=== PATIENT | male | born 1940 | race Caucasian/White ===

== ENCOUNTER 2016-12-28 09:43 | Day surgery (SDC) | payer OTHER ==
[~2016-12-28] VITALS: Ht 170.2 cm; Wt 137.0 kg
[~2016-12-28 09:43] MED LIST: ALBUTEROL1.25 MG/3 IH; BUSPIRONE HCL15 MG PO; DEPAKOTE ER500 MG PO; FINASTERIDE5 MG PO; FLOMAX0.4 MG PO; FUROSEMIDE40 MG PO; GABAPENTIN300 MG PO; ISOSORBIDE MONO30 MG PO; LANTUS 10100 UNITS/ SC; LIDODERM 5% P1 PATCH TD; LO-DOSE ASPIRIN81 M2 PO; NOVOLOG 10100 UNITS/ SC; PLAVIX75 MG PO; TOPROL XL50 MG PO; TYLENOL EXTRA500 MG PO; VITAMIN D32000 UNI1 PO
[2016-12-28 10:22] VITALS: BP 197/87
[2016-12-28 10:31] LABS: POINT-OF-CARE METER ID UU14174212
[2016-12-28 10:39] LABS: HEMATOCRIT 33.3 % (38.0-50.0); MCV 105.7 FL (86-99)
[2016-12-28 11:02] LABS: ANION GAP 10 MEQ/L (2-14); CHLORIDE 111 MEQ/L (99-109); POTASSIUM 5.8 MEQ/L (3.7-5.4); SAMPLE HEMOLYSIS CHECK 0; SAMPLE ICTERIC CHECK 0; SAMPLE LIPEMIA CHECK 0; SODIUM 143 MEQ/L (136-147)
[2016-12-28 11:07] LABS: GFR ESTIMATE (CALCULATED) 15 mL/min/; GLUCOSE 114 mg/dL (70-99); UREA NITROGEN (BUN) 80 mg/dL (9-23)
[2016-12-28 11:49] LABS: POINT-OF-CARE METER ID UU14174212
[2016-12-28 11:58] LABS: METH RESISTANT S AUREUS PCR NEGATIVE (NEGATIVE)
[2016-12-28 11:59] LABS: PROBE CHECK PASS; SPECIMEN PROCESSING CONTROL PASS
[2016-12-28] MEDS ORDERED: NORCO 5/3251 TABLET PO (15:01)
[2016-12-28 16:03] VITALS: BP 136/75
[2016-12-28 17:42] LABS: POINT-OF-CARE METER ID UU14174212
[2016-12-28 17:43] VITALS: BP 163/76
[2016-12-28 19:05] VITALS: BP 147/79
[2016-12-28 19:39] VITALS: BP 158/73
== END 2016-12-28 20:10 | disposition home or self-care (01) ==
LOC: SDC 09:43
PROVIDERS: Anesthesiology; Surgery
PROC: 03180ZD Bypass Left Brachial Artery to Upper Arm Vein, Open Approach (ICD-10-PCS; principal; 2016-12-28)
DX: I12.0 Hypertensive chronic kidney disease with stage 5 chronic kidney disease or end stage renal disease (principal); E11.22 Type 2 diabetes mellitus with diabetic chronic kidney disease; N18.6 End stage renal disease; Z99.2 Dependence on renal dialysis; J44.9 Chronic obstructive pulmonary disease, unspecified; K21.9 Gastro-esophageal reflux disease without esophagitis
CPT/HCPCS: 80048; 82948; 85014; 85018; 87641; C2628; J0690; J1644; J2250

== ENCOUNTER 2016-12-30 21:23 | Emergency (ER) | payer OTHER ==
[~2016-12-30] VITALS: Ht 170.2 cm; Wt 136.3 kg
[~2016-12-30 21:23] MED LIST changes: +NORCO 5/3251 TABLET PO
[2016-12-30 22:36] LABS: HEMATOCRIT 29.8 % (38.0-50.0); MCH 34.9 PG (29.0-34.0); MCHC 32.9 G/DL (30.0-36.0); MEAN PLAT.VOLUME 9.1 uM^3 (9.0-12.4); PLATELET COUNT 123 K/uL (156-360); RBC DIS.WIDTH-CV 12.4 % (11.8-14.6); RBC DIS.WIDTH-SD 46.3 % (39-53); RED BLOOD COUNT 2.81 M/uL (4.00-5.50); WHITE BLOOD COUNT 5.7 K/uL (4.1-10.2)
[2016-12-30 22:45] LABS: CHLORIDE 113 mEq/L (99-109); POTASSIUM 5.5 mEq/L (3.7-5.4); SODIUM 143 mEq/L (136-147)
[2016-12-30 22:48] LABS: ANION GAP 9 MEQ/L (2-14)
[2016-12-30 22:49] LABS: GLUCOSE 73 mg/dL (70-99)
[2016-12-30 22:51] LABS: GFR ESTIMATE (CALCULATED) 13 mL/min/
[2016-12-30 22:52] LABS: INTER. NORMALIZED RATIO 1.1; PROTHROMBIN TIME 10.9 (9.2-11.2); UREA NITROGEN (BUN) 94 mg/dL (9-23)
[2016-12-31 01:39] VITALS: BP 156/77
== END 2016-12-31 01:40 | disposition home or self-care (01) ==
LOC: EME 21:23
PROVIDERS: Physician Assistant
DX: G89.18 Other acute postprocedural pain (principal); M79.602 Pain in left arm; I13.0 Hypertensive heart and chronic kidney disease with heart failure and stage 1 through stage 4 chronic kidney disease, or unspecified chronic kidney disease; J45.909 Unspecified asthma, uncomplicated; J44.9 Chronic obstructive pulmonary disease, unspecified; K21.9 Gastro-esophageal reflux disease without esophagitis; Z87.442 Personal history of urinary calculi; Z86.73 Personal history of transient ischemic attack (TIA), and cerebral infarction without residual deficits; Z87.891 Personal history of nicotine dependence; Z79.02 Long term (current) use of antithrombotics/antiplatelets; Z79.82 Long term (current) use of aspirin; Z88.8 Allergy status to other drugs, medicaments and biological substances; Z88.1 Allergy status to other antibiotic agents; Z88.5 Allergy status to narcotic agent; Z91.041 Radiographic dye allergy status
CPT/HCPCS: 80048; 85027; 85610; 85730; 93005; 93971; 99281; 99284

== ENCOUNTER 2017-01-24 11:08 | Inpatient (IN) | payer OTHER ==
[~2017-01-24] VITALS: Ht 170.2 cm; Wt 139.3 kg
[2017-01-24 12:34] LABS: HEMATOCRIT 30.6 % (38.0-50.0); MCH 34.5 PG (29.0-34.0); MCV 107.7 FL (86-99); MEAN PLAT.VOLUME 10.3 uM^3 (9.0-12.4); PLATELET COUNT 120 K/uL (156-360); RBC DIS.WIDTH-CV 12.5 % (11.8-14.6); RBC DIS.WIDTH-SD 49.6 % (39-53); RED BLOOD COUNT 2.84 M/uL (4.00-5.50); WHITE BLOOD COUNT 4.3 K/uL (4.1-10.2)
[2017-01-24 12:41] LABS: CHLORIDE 116 mEq/L (99-109); INTER. NORMALIZED RATIO 1.1; PROTHROMBIN TIME 11.7 (9.2-11.2); SODIUM 145 mEq/L (136-147)
[2017-01-24 12:42] LABS: POTASSIUM 6.5 mEq/L (3.7-5.4)
[2017-01-24 12:43] LABS: GLUCOSE 115 mg/dL (70-99)
[2017-01-24 12:44] LABS: ANION GAP 8 MEQ/L (2-14)
[2017-01-24 12:47] LABS: GFR ESTIMATE (CALCULATED) 15 mL/min/
[2017-01-24 12:48] LABS: UREA NITROGEN (BUN) 87 mg/dL (9-23)
[2017-01-24 12:54] LABS: TROP-I INTERPRETATION NEGATIVE; TROPONIN-I 0.02 ng/mL (0.0-0.30)
[2017-01-24 19:27] VITALS: BP 190/82
[2017-01-24 19:46] LABS: ANION GAP 7 MEQ/L (2-14); CHLORIDE 113 MEQ/L (99-109); GFR ESTIMATE (CALCULATED) 16 mL/min/; POTASSIUM 5.8 MEQ/L (3.7-5.4); SAMPLE HEMOLYSIS CHECK 0; SAMPLE ICTERIC CHECK 0; SAMPLE LIPEMIA CHECK 0; SODIUM 145 MEQ/L (136-147); UREA NITROGEN (BUN) 80 mg/dL (9-23)
[2017-01-24 19:49] LABS: GLUCOSE 178 mg/dL (70-99)
[2017-01-24 21:15] LABS: POINT-OF-CARE METER ID UU14188625
[2017-01-25] VITALS (8 sets, daily range): BP systolic 144–206; BP diastolic 70–90
[2017-01-25 05:40] LABS: HEMATOCRIT 32.8 % (38.0-50.0); MCH 33.9 PG (29.0-34.0); MCHC 31.4 G/DL (30.0-36.0); MCV 107.9 FL (86-99); MEAN PLAT.VOLUME 10.8 uM^3 (9.0-12.4); PLATELET COUNT 114 K/uL (156-360); RBC DIS.WIDTH-CV 12.8 % (11.8-14.6); RED BLOOD COUNT 3.04 M/uL (4.00-5.50); WHITE BLOOD COUNT 5.3 K/uL (4.1-10.2)
[2017-01-25 06:01] LABS: ANION GAP 9 MEQ/L (2-14); CHLORIDE 114 MEQ/L (99-109); GFR ESTIMATE (CALCULATED) 17 mL/min/; SAMPLE HEMOLYSIS CHECK 0; SAMPLE ICTERIC CHECK 0; SAMPLE LIPEMIA CHECK 0; SODIUM 145 MEQ/L (136-147); UREA NITROGEN (BUN) 82 mg/dL (9-23)
[2017-01-25 06:03] LABS: GLUCOSE 116 mg/dL (70-99)
[2017-01-25 11:22] LABS: POINT-OF-CARE METER ID UU14188625
[2017-01-25 16:33] LABS: POINT-OF-CARE METER ID UU14188625
[2017-01-25 18:39] LABS: ANION GAP 8 MEQ/L (2-14); CHLORIDE 109 MEQ/L (99-109); POTASSIUM 5.1 MEQ/L (3.7-5.4); SAMPLE HEMOLYSIS CHECK 0; SAMPLE ICTERIC CHECK 0; SAMPLE LIPEMIA CHECK 0; SODIUM 143 MEQ/L (136-147)
[2017-01-25 18:45] LABS: GFR ESTIMATE (CALCULATED) 17 mL/min/; GLUCOSE 166 mg/dL (70-99); UREA NITROGEN (BUN) 77 mg/dL (9-23)
[2017-01-25 21:39] LABS: POINT-OF-CARE METER ID UU14174225
[2017-01-26 04:07] VITALS: BP 148/82; BP 188/113
[2017-01-26 05:21] LABS: CHLORIDE 109 mEq/L (99-109); POTASSIUM 5.4 mEq/L (3.7-5.4); SODIUM 144 mEq/L (136-147)
[2017-01-26 05:23] LABS: GLUCOSE 128 mg/dL (70-99)
[2017-01-26 05:24] LABS: ANION GAP 10 MEQ/L (2-14)
[2017-01-26 05:27] LABS: GFR ESTIMATE (CALCULATED) 16 mL/min/
[2017-01-26 05:28] LABS: UREA NITROGEN (BUN) 80 mg/dL (9-23)
[2017-01-26 10:09] LABS: POINT-OF-CARE METER ID UU13113675
[2017-01-26 11:26] VITALS: BP 177/79
[2017-01-26 16:35] VITALS: BP 199/95
[2017-01-26 19:35] VITALS: BP 145/71
[2017-01-27] VITALS (10 sets, daily range): BP systolic 111–168; BP diastolic 60–84
[2017-01-27 05:55] LABS: ANION GAP 11 MEQ/L (2-14); CHLORIDE 104 MEQ/L (99-109); GFR ESTIMATE (CALCULATED) 16 mL/min/; POTASSIUM 4.6 MEQ/L (3.7-5.4); SAMPLE HEMOLYSIS CHECK 0; SAMPLE ICTERIC CHECK 0; SAMPLE LIPEMIA CHECK 0; SODIUM 142 MEQ/L (136-147); UREA NITROGEN (BUN) 84 mg/dL (9-23)
[2017-01-27 05:57] LABS: GLUCOSE 270 mg/dL (70-99)
[2017-01-27] MEDS ORDERED: FUROSEMIDE40 MG PO (08:53)
[2017-01-27] MEDS ORDERED: AMLODIPINE BESY10 MG PO (08:54)
[2017-01-28 04:35] VITALS: BP 125/69
[2017-01-28 05:25] VITALS: BP 000/00
[2017-01-28 06:07] LABS: ANION GAP 11 MEQ/L (2-14); CHLORIDE 105 MEQ/L (99-109); GFR ESTIMATE (CALCULATED) 13 mL/min/; GLUCOSE 173 mg/dL (70-99); POTASSIUM 4.9 MEQ/L (3.7-5.4); SAMPLE HEMOLYSIS CHECK 0; SAMPLE ICTERIC CHECK 0; SAMPLE LIPEMIA CHECK 0; SODIUM 142 MEQ/L (136-147); UREA NITROGEN (BUN) 97 mg/dL (9-23)
[2017-01-28 07:22] VITALS: BP 129/70
[2017-01-28 12:44] VITALS: BP 148/62
== END 2017-01-28 13:52 | disposition home or self-care (01) | DRG 673 ==
LOC: EME 11:08 → EDOF 14:38 → 5SOUTH 14:38
PROVIDERS: Internal Medicine; Internal Medicine Nephrology
PROC: 037Y3ZZ Dilation of Upper Artery, Percutaneous Approach (ICD-10-PCS; principal; 2017-01-26)
DX: N18.6 End stage renal disease (principal); I50.21 Acute systolic (congestive) heart failure; I13.2 Hypertensive heart and chronic kidney disease with heart failure and with stage 5 chronic kidney disease, or end stage renal disease; E11.22 Type 2 diabetes mellitus with diabetic chronic kidney disease; T82.858A Stenosis of other vascular prosthetic devices, implants and grafts, initial encounter; Y83.2 Surgical operation with anastomosis, bypass or graft as the cause of abnormal reaction of the patient, or of later complication, without mention of misadventure at the time of the procedure; E87.5 Hyperkalemia; E66.01 Morbid (severe) obesity due to excess calories; Z68.42 Body mass index [BMI] 45.0-49.9, adult; I25.10 Atherosclerotic heart disease of native coronary artery without angina pectoris; E11.40 Type 2 diabetes mellitus with diabetic neuropathy, unspecified; G40.909 Epilepsy, unspecified, not intractable, without status epilepticus; G47.33 Obstructive sleep apnea (adult) (pediatric); Z99.81 Dependence on supplemental oxygen; D86.9 Sarcoidosis, unspecified; E55.9 Vitamin D deficiency, unspecified; J44.9 Chronic obstructive pulmonary disease, unspecified; J45.909 Unspecified asthma, uncomplicated; F32.9 Major depressive disorder, single episode, unspecified; K21.9 Gastro-esophageal reflux disease without esophagitis; D63.1 Anemia in chronic kidney disease; I73.9 Peripheral vascular disease, unspecified; E11.319 Type 2 diabetes mellitus with unspecified diabetic retinopathy without macular edema; N40.0 Benign prostatic hyperplasia without lower urinary tract symptoms; M19.90 Unspecified osteoarthritis, unspecified site; Z95.5 Presence of coronary angioplasty implant and graft; Z86.73 Personal history of transient ischemic attack (TIA), and cerebral infarction without residual deficits; Z87.891 Personal history of nicotine dependence; Z86.61 Personal history of infections of the central nervous system; Z96.653 Presence of artificial knee joint, bilateral; Z79.4 Long term (current) use of insulin; Z79.02 Long term (current) use of antithrombotics/antiplatelets; Z79.82 Long term (current) use of aspirin
CPT/HCPCS: 71020; 80048; 80048 91; 80069; 82948; 83880; 84484; 85027; 85610; 93005; 94640; 97530 GO; 99202; 99281; 99284; C1725; C1769; C1894; J0610; J1200; J1644; J1720; J1815; J1940; J7050; S0028

== ENCOUNTER 2017-05-31 11:26 | Day surgery (SDC) | payer OTHER ==
[~2017-05-31] VITALS: Ht 172.7 cm; Wt 127.0 kg
[~2017-05-31 11:26] MED LIST changes: +ADVAIR HFA120 INHALA IH; +AMLODIPINE BESY10 MG PO; +BUSPAR10 MG PO; +COLACE100 MG PO; +DULCOLAX10 MG PR; +DUONEB 2.5-0.5 M3 ML AEROSOL; +IMDUR30 MG PO; +LANTUS 3 M100 UNITS1 SC; +LASIX40 MG PO; +LOPRESSOR25 MG PO; +NEPHRO-VITE,1 TABLET PO; +NEURONTIN100 MG PO; +NOVOLOG100 UNIT/1 SC; +PAIN RELIEF TP; +PROSCAR5 MG PO; +RECTASMOOTHE30 GM TP; +RELADOR PAK PL1 EACH TP; +TYLENOL REGULA325 MG PO; +VENTOLIN HFA18 GM IH
[2017-05-31 12:52] VITALS: BP 97/50
[2017-05-31 12:58] LABS: HEMATOCRIT 31.7 % (38.0-50.0); MCH 34.6 PG (29.0-34.0); MCHC 31.9 G/DL (30.0-36.0); MCV 108.6 FL (86-99); MEAN PLAT.VOLUME 8.8 uM^3 (9.0-12.4); PLATELET COUNT 151 K/uL (156-360); RBC DIS.WIDTH-CV 14.7 % (11.8-14.6); RBC DIS.WIDTH-SD 58.5 % (39-53); RED BLOOD COUNT 2.92 M/uL (4.00-5.50); WHITE BLOOD COUNT 3.5 K/uL (4.1-10.2)
[2017-05-31 13:27] LABS: POINT-OF-CARE METER ID UU13113694
[2017-05-31 13:29] LABS: ANION GAP 8 MEQ/L (2-14); CHLORIDE 101 MEQ/L (99-109); GFR ESTIMATE (CALCULATED) 26 mL/min/; GLUCOSE 63 mg/dL (70-99); POTASSIUM 3.5 MEQ/L (3.7-5.4); SAMPLE HEMOLYSIS CHECK 0; SAMPLE ICTERIC CHECK 0; SAMPLE LIPEMIA CHECK 0; SODIUM 147 MEQ/L (136-147); UREA NITROGEN (BUN) 12 mg/dL (9-23)
[2017-05-31 13:50] LABS: METH RESISTANT S AUREUS PCR NEGATIVE (NEGATIVE)
[2017-05-31 13:54] LABS: PROBE CHECK PASS; SPECIMEN PROCESSING CONTROL PASS
[2017-05-31 14:16] LABS: POINT-OF-CARE METER ID UU13113694
[2017-05-31 16:00] LABS: POINT-OF-CARE METER ID UU13113694
[2017-05-31 17:14] LABS: POINT-OF-CARE METER ID UU13113694
[2017-05-31 18:46] LABS: POINT-OF-CARE METER ID UU13113675; POINT-OF-CARE USER ID ADMSLT55
[2017-05-31 19:05] VITALS: BP 100/53
[2017-05-31 20:05] VITALS: BP 117/46
== END 2017-05-31 20:30 ==
LOC: SDC 11:26
PROVIDERS: Surgery
PROC: 057Y3ZZ Dilation of Upper Vein, Percutaneous Approach (ICD-10-PCS; principal; 2017-05-31)
DX: T82.510A Breakdown (mechanical) of surgically created arteriovenous fistula, initial encounter (principal); E11.22 Type 2 diabetes mellitus with diabetic chronic kidney disease; N18.6 End stage renal disease; Z99.2 Dependence on renal dialysis; J44.9 Chronic obstructive pulmonary disease, unspecified; G47.30 Sleep apnea, unspecified; K21.9 Gastro-esophageal reflux disease without esophagitis; I25.10 Atherosclerotic heart disease of native coronary artery without angina pectoris; Z79.4 Long term (current) use of insulin; Z86.14 Personal history of Methicillin resistant Staphylococcus aureus infection; Z86.73 Personal history of transient ischemic attack (TIA), and cerebral infarction without residual deficits; Z79.02 Long term (current) use of antithrombotics/antiplatelets
CPT/HCPCS: 80048; 82948; 85027; 87641; C1769; C1894; J1644; J2250; J2405; J3010; J3370